=== PATIENT | male | born 1995 | race Caucasian/White ===

== ENCOUNTER 2020-06-01 18:55 | Emergency (ER) | payer BC, MEDICAID, OTHER ==
[2020-06-01] MEDS ORDERED: Amoxicillin/Clavulanate K 875-125 MG Tab PO ONE (19:39)
--- NOTE | 2020-06-01 19:40 | EDM.PDOC ---
ED HPI GENERAL MEDICAL PROBLEM - General Stated Complaint: DOG BITE Time Seen by Provider: 06/01/20 19:35 Source of Information: Reports: Patient History Limitations: Reports: No Limitations - History of Present Illness INITIAL COMMENTS - FREE TEXT/NARRATIVE: Patient was reaching for dog puppies from the mother,and she bit him on the lower lip. Sustained laceration of the lower lip,crossing the vermilion. - Related Data Allergies Allergy/AdvReac Type Severity Reaction Status Date / Time No Known Allergies Allergy Verified 06/01/20 19:07 Home Meds: Home Meds Escitalopram [Lexapro] 10 mg PO DAILY 06/01/20 [History] Lisdexamfetamine [Vyvanse] 20 mg PO DAILY 06/01/20 [History] ED ROS GENERAL - Review of Systems Review Of Systems: Comprehensive ROS is negative, except as noted in HPI. ED EXAM, ANIMAL BITE - Physical Exam Exam: See Below Text/Narrative:: 3 cm laceration of the lower lip of the mouth. Crosses marleni ED ANIMAL BITE PROCEDURES - Laceration/Wound Repair Left Lower Mouth Lac/Wound Length In cm: 3 Appearance: Subcutaneous, Clean Distal NVT: Neuro & Vascular Intact Anesthetic Type: Local Local Anesthesia - Lidocaine (Xylocaine): 2% with EPI Exploration/Debridement/Repair: In a Bloodless Field Suture Size: 5-0 Suture Type: Prolene Tetanus Status Addressed: Yes Complications: No Departure - Departure Time of Disposition: 19:38 Disposition: Home, Self-Care 01 Condition: Good Clinical Impression: Dog bite, Lip laceration - Discharge Information - Problem List & Annotations (1) Dog bite SNOMED Code(s): 023387029, 962654588 Code(s): W54.0XXA - BITTEN BY DOG, INITIAL ENCOUNTER Status: Acute Qualifiers: Encounter type: initial encounter Qualified Code(s): W54.0XXA - Bitten by dog, initial encounter (2) Lip laceration SNOMED Code(s): 893064108 Code(s): S01.511A - LACERATION WITHOUT FOREIGN BODY OF LIP, INITIAL ENCOUNTER Status: Acute Qualifiers: Encounter type: initial encounter Qualified Code(s): S01.511A - Laceration without foreign body of lip, initial encounter - Problem List Review Problem List Initiated/Reviewed/Updated: Yes - Assessment/Plan Plan: Lip repar to approximate skin edges. Remove sutures in 5-7 days. He is uptodate on Tdap. Augmentin 875 mg BID
== END 2020-06-01 19:50 | disposition home or self-care (01) ==
LOC: FB.ED 18:55
DX: S01.551A Open bite of lip, initial encounter (principal); Z79.899 Other long term (current) drug therapy; W54.0XXA Bitten by dog, initial encounter
CPT/HCPCS: 12013; 99283-25; A9270-GY